=== PATIENT | female | born 1935 | race Caucasian/White ===

== ENCOUNTER 2017-09-28 15:39 | Emergency (ER) | payer MEDICARE, BC | END 2017-09-28 16:38 | disposition left against medical advice (07) | LOC: ER 15:39 | DX: Z53.20 Procedure and treatment not carried out because of patient's decision for unspecified reasons (principal) ==

== ENCOUNTER 2018-02-07 11:03 | Day surgery (SDC) | payer MEDICARE, BC ==
[2018-02-07] MEDS ORDERED: LIDOCAINE 2% MDV (20MG/ML) 20ML VIAL IV ONE (11:04)
[2018-02-07] MEDS ORDERED: PROPOFOL 10 MG/ML VIAL IV ONE (11:04)
--- NOTE | 2018-02-08 10:20 | Operative Note ---
DATE OF SURGERY: 02/07/18 OPERATION: COLONOSCOPY. PREOPERATIVE DIAGNOSIS: Abnormal Cologuard. POSTOPERATIVE DIAGNOSIS: Sigmoid diverticulosis. PREPARATION QUALITY: Good to excellent. ESTIMATED BLOOD LOSS: None. SPECIMENS: None. COMPLICATIONS: None apparent. PROCEDURE: After informed consent was obtained from the patient, she was placed in the left lateral decubitus position in the endoscopy suite, sedated and monitored by the department of anesthesia. Digital rectal examination was unremarkable. A well-lubricated [id number] colonoscope was inserted into the rectum and advanced to the cecum. Preparation quality was excellent. The ileocecal valve, appendiceal orifice, ascending colon, transverse colon, and descending colon were unremarkable. No polyps, mass lesions, or inflammation seen. No fresh or old blood was seen. The sigmoid colon demonstrated [id number] diverticular changes. No fresh or old blood, polyps, mass lesions were seen, the rectum was unremarkable in forward and in J-turn views. The endoscope was straightened, the rectal ampulla deflated, and the endoscope was removed. RECOMMENDATIONS: The patient should follow a high-fiber diet. As always, thank you for allowing me to participate in the healthcare of your patients. CC: DO TIERA Monroy
== END 2018-02-07 12:30 | disposition home or self-care (01) ==
LOC: HOP 11:03
PROVIDERS: ATTEND Internal Medicine Gastroenterology
DX: R19.5 Other fecal abnormalities (principal); K57.30 Diverticulosis of large intestine without perforation or abscess without bleeding; M19.90 Unspecified osteoarthritis, unspecified site

== ENCOUNTER 2019-01-10 12:55 | Emergency (ER) | payer MEDICARE, BC ==
--- NOTE | 2019-01-10 13:33 | Emergency Department Record ---
History of Present Illness - General Chief Complaint: Mental health evaluation Stated Complaint: PSYCH EVAL Time Seen by Provider: 01/10/19 13:09 Source: Patient, Police Mode of Arrival: Ambulatory Limitations: No limitations - History of Present Illness Initial Comments: 83 yo female presents with law enforcement. The patient was on the phone with her insurance agency and expressed thoughts of wanting to . Law enforcement was contacted and presented to her home. The State and [facility] officers both witnessed her express thoughts of thinking of killing herself. She admits this to me as well. She expresses long standing depression, stress and feeling overwhelmed with life responsibilities, relationship issues with her daughter, dealing with a dementia in a than lead to a divorce three years ago, and then his . She states the relationship with her daughter has driven her to "despair". She states she "spoiled" her daughter her whole life and now is taken for granted and mis-treated. She did not express a plan to kill herself. She made other statements such as the police liaison officer involved "could care less if she kills herself so why does it matter". Law enforcement filed a Petition for Mental Health Treatment. I explained this to the patient and the mandatory requirement for mental health evaluation including the certification process. The patient denies any recent major changes in her health. MD Complaint: Suicidal ideation Onset/Timin -: Hour(s) Associated Psychiatric Symptoms: Other Improves With: None Worsens With: None Context: Significant life stressor Associated Symptoms: Denies other symptoms Treatments Prior to Arrival: Placed on mental health hold If Self Harm: Admits thoughts of self harm - Christopher Coma Scale Eye Response: (4) Open spontaneously Motor Response: (6) Obeys commands Verbal Response: (5) Oriented [place] Total: 15 - Related Data Allergies Allergy/AdvReac Type Severity Reaction Status Date / Time No Known Drug Allergies Allergy Verified 01/10/19 12:57 Review of Systems Constitutional: Denies: Chills, Fever, Malaise, Weakness Eyes: Denies: Eye discharge ENT: Reports: Congestion. Denies: Throat pain Respiratory: Denies: Cough, Dyspnea, Hemoptysis, Wheezes Cardiovascular: Denies: Chest pain, Palpitations, Syncope Endocrine: Denies: Fatigue, Polydipsia, Polyuria Gastrointestinal: Denies: Abdominal pain, Diarrhea, Nausea, Vomiting Genitourinary: Denies: Dysuria, Urgency Musculoskeletal: Denies: Arthralgia, Back pain, Myalgia Skin: Denies: Bruising, Change in color, Rash Neurological: Denies: Headache, Numbness, Vertigo, Weakness Psychiatric: Reports: Anxiety, Depression, Suicidal thoughts. Denies: Auditory hallucinations, Homicidal thoughts, Visual hallucinations Hematological/Lymphatic: Denies: Easy bleeding, Easy bruising Past Medical History - SOCIAL HISTORY Smoking Status: Never smoker Alcohol Use: None Drug Use: None - RESPIRATORY Hx Respiratory Disorders: Yes Hx Pneumonia: Yes (once) Comment:: cough noted 3 yrs ago-has black mold in home. - CARDIOVASCULAR Hx Cardio Disorders: Yes Hx Palpitations: Yes (rapid at times) - NEURO Hx Neuro Disorders: Yes Hx Neuropathy: Yes (right hand & fingers) - GI Hx GI Disorders: Yes Hx Reflux: Yes (acid reflux) Hx Ulcer: Yes (no longer a prob) - Hx Genitourinary Disorders: No - ENDOCRINE Hx Endocrine Disorders: No - MUSCULOSKELETAL Hx Musculoskeletal Disorders: Yes Hx Arthritis: Yes (all over) Hx Back Injury: Yes (L1 & hip-fell down 5 steps) Hx Osteoporosis: Yes Comment:: psoriatic arthritis - PSYCH Hx Psych Problems: Yes Hx Anxiety: Yes Hx Depression: Yes Comment:: overwhelmed without help at home - HEMATOLOGY/ONCOLOGY Hx Hematology/Oncology Disorders: Yes Hx Anemia: Yes (many yrs ago) Family Medical History Any Significant Family History?: No Physical Exam - General General Appearance: Alert, Oriented x3, Cooperative, No acute distress Limitations: No limitations - Head Head exam: Atraumatic, Normal inspection - Eye Eye exam: Normal appearance, PERRL. negative: Conjunctival injection, Scleral icterus - ENT ENT exam: Normal exam, Mucous membranes moist Ear exam: Normal external inspection Nasal Exam: Normal inspection Mouth exam: Normal external inspection - Neck Neck exam: Normal inspection - Respiratory Respiratory exam: Normal lung sounds bilaterally. negative: Respiratory distress - Cardiovascular Cardiovascular Exam: Regular rate, Normal rhythm, Normal heart sounds Peripheral Pulses: 2+: Radial (R), Radial (L) - GI/Abdominal GI/Abdominal exam: Soft. negative: Tenderness - Rectal Rectal exam: Deferred - exam: Deferred - Extremities Extremities exam: Normal inspection. negative: Pedal edema, Tenderness - Back Back exam: Denies: CVA tenderness (R), CVA tenderness (L) - Neurological Neurological exam: Alert, Normal gait, Oriented X3. negative: Altered, Motor sensory deficit - Psychiatric Psychiatric exam: Anxious, Depressed, Suicidal ideation. negative: Homicidal ideation - Skin Skin exam: Dry, Intact, Normal color, Warm Course Vital Signs 01/10/19 13:08 Temperature 98 F Pulse Rate 52 L Respiratory 20 Rate Blood Pressure 137/88 Pulse Ox 98 - Reevaluation(s) Reevaluation #1: 01/10/19 13:35 Law enforcement petition reviewed 01/10/19 14:20 The CBC was negative The BMP is normal 01/10/19 14:20 Alcohol is normal 01/10/19 14:42 The UA is negative for infection The UDS is positive for benzodiazepines Aspirn is negative Tylenol is negative TSH is pending I explained on arrival and again repeated with the patient the Petition and Certification process 01/10/19 15:50 TSH is normal at 1.95 The patient is medically cleared Her information has been sent to [facility]. 01/10/19 18:21 The patient was accepted at the [facility] Unit Medical Decision Making - Lab Data Result diagrams: 01/10/19 13:43 01/10/19 13:43 Disposition Disposition: Transfer Clinical Impression: Suicidal ideation Depression Qualifiers: Depression Type: unspecified Qualified Code(s): F32.9 - Major depressive d isorder, single episode, unspecified Disposition: Psychiatric Hospital Transfer To: [facility] Reason For Transfer: Depression and Suicidal ideation Accepting Physician: Colin Time Discussed w/Accepting Physician: 17:30 Condition: (2) Stable Forms: Patient Portal Access Time of Disposition: 17:30 Quality - Quality Measures Quality Measures: N/A - Blood Pressure Screening Does Patient Have Any of the Following: No Blood Pressure Classification: Pre-Hypertensive BP Reading Systolic Measurement: 137 Diastolic Measurement: 88 Screening for High Blood Pressure: < Pre-Hypertensive BP, F/U Documented > [[id number]] Pre-Hypertensive Follow-up Interventions: Referral to alternative/primary care provider.
[2019-01-10 14:05] LABS: ABSOLUTE NEUTROPHIL COUNT 3.89; BASO % 0.2 % (0-6); EOS % 0.8 % (0-6); GRAN % 60.8 % (47-80); HEMATOCRIT 40.8 % (35.0-47.0); HEMOGLOBIN 12.9 gm/dl (11.6-16.0); LYMPH % 27.9 % (16-45); MEAN CELL VOLUME 88.7 fl (81-97); MEAN CORPUSCULAR HGB CONC 31.6 g/dl (32-36); MEAN PLATELET VOLUME 10.4 fl (7.4-10.4); MONO % 10.3 % (0-9); PLATELET COUNT 246 K/uL (130-400); RED CELL DISTRIBUTION WIDTH 14.9 % (11.5-14.5); WHITE BLOOD COUNT W/O DIFF 6.4 K/uL (4.2-12.2)
[2019-01-10 14:15] LABS: BLOOD UREA NITROGEN 15 mg/dL (8-23); CREATININE 0.8 mg/dL (0.5-0.9); EST GLOMERULAR FILTRATION RATE > 60 mL/min
[2019-01-10 14:16] LABS: TOTAL PROTEIN 7.3 g/dL (6.6-8.7)
[2019-01-10 14:17] LABS: ALCOHOL < 0.010 g/dL (0-0.010)
[2019-01-10 14:18] LABS: GLUCOSE,RANDOM 118 mg/dL (74-109)
[2019-01-10 14:21] LABS: ACETAMINOPHEN < 5.0 ug/mL (10.0-30.0); ALB/GLOB RATIO 1.6 (1.1-1.8); ALBUMIN 4.5 g/dL (4.0-5.0); ALKALINE PHOSPHATASE 54 U/L (35-104); ALT/SGPT 20 U/L (<33); AST/SGOT 29 U/L (10.0-35.0); SALICYLATE < 0.3 mg/dL (2.8-20)
[2019-01-10 14:22] LABS: URINE APPEARANCE CLEAR; URINE BILIRUBIN NEGATIVE (NEGATIVE); URINE BLOOD MODERATE (NEGATIVE); URINE COLOR YELLOW; URINE GLUCOSE (UA) NEGATIVE (NEGATIVE); URINE KETONE NEGATIVE (NEGATIVE); URINE LEUKOCYTE ESTERASE TRACE (NEGATIVE); URINE NITRITE NEGATIVE (NEGATIVE); URINE PROTEIN NEGATIVE (NEGATIVE); URINE UROBILINOGEN 0.2 E.U./dL (0.20 - 1.00)
[2019-01-10 14:25] LABS: AMPHETAMINE SCREEN URINE NOT DETECTED; BARBITURATE SCREEN URINE NOT DETECTED; BENZODIAZEPINE SCREEN URINE DETECTED; COCAINE SCREEN URINE NOT DETECTED; METHADONE SCREEN URINE NOT DETECTED; METHAMPHETAMINE SCREEN NOT DETECTED; OPIATE SCREEN URINE NOT DETECTED; OXYCODONE SCREEN URINE NOT DETECTED; PHENCYCLIDINE SCREEN URINE NOT DETECTED; PROPOXYPHENE SCREEN URINE NOT DETECTED; THC SCREEN URINE NOT DETECTED; TRICYCLIC ANTIDEPRESSANT SCRN NOT DETECTED
[2019-01-10 14:33] LABS: URINE EPITHELIAL CELLS 0 - 2 (FEW); URINE RBC 0 - 2 (NONE SEEN)
[2019-01-10 15:44] LABS: THYROID STIMULATING HORMONE 1.95 uIU/mL (0.270-4.20)
== END 2019-01-10 20:24 ==
LOC: ER 12:55
DX: R45.851 Suicidal ideations (principal); F32.9 Major depressive disorder, single episode, unspecified
CPT/HCPCS: 80053; 80305; 80320; 80329; 81001; 84443; 85025; 99285